=== PATIENT | male | born 1995 | race Caucasian/White ===

== ENCOUNTER 2016-11-08 01:06 | Emergency (ER) | payer OTHER ==
[~2016-11-08] VITALS: Ht 180.3 cm; Wt 92.5 kg
[2016-11-08 01:14] VITALS: TEMP 36.9; Ht 180.3 cm; Wt 92.5 kg
[2016-11-08] MEDS ORDERED: CEFTRIAXONE SOD 350MG/ML 1 GM VIAL IM STA (01:36)
[2016-11-08] MEDS ORDERED: AZITHROMYCIN 250 MG TAB PO STA (01:36)
--- NOTE | 2016-11-08 02:35 | EMERGENCY ROOM VISIT NOTE ---
History First contact with patient: 01:23 Chief Complaint: STD MALE Stated Complaint: POSSIBLE STD Nursing Triage Summary: Patient reports his girlfriend is showing symptoms. States "it whitney when she pees. I just wanted to get checked out. She has an appt friday." Denies symptoms himself. History of Present Illness The patient is a 21 year old male who presents to the Emergency Room with complaints of possible STI. Patient is requesting testing and treatment. He is concerned his girlfriend has 1. He's had gonorrhea in the past. Patient states his girlfriend cheated on him. Patient denies any current symptoms. Patient denies penile pain, testicular pain, penile discharge, dysuria, hematuria, fever, chills, abdominal pain, back pain, sore throat, rectal pain. No other concerns per patient. Review of Systems See HPI for pertinent positives & negatives. A total of 6 systems reviewed and were otherwise negative. Past Medical/Surgical History none Social History Smoking Status: Never Smoker Smokeless Tobacco Use: No Alcohol Use: none Drug Use: none Marital Status: in relationship Housing Status: lives with family Occupation Status: [employer] student Current/Historical Medications No Active Prescriptions or Reported Meds Allergies Coded Allergies: No Known Allergies (Unverified , 05/10/16) Physical Exam Vital Signs Date Time Temp Pulse Resp B/P Pulse Ox O2 Delivery O2 Flow Rate FiO2 11/08/16 01:14 36.9 73 18 144/86 97 Room Air Physical Exam VITALS: Vitals are noted on the nurse's note and reviewed by myself. Vital signs stable. GENERAL: Anxious-appearing male, in no acute distress, nondiaphoretic, well- developed well-nourished. SKIN: Capillary reflex less than 2 seconds. HEENT: Normocephalic. PERRLA. EOMI. Nares patent. Mucous membranes moist. Neck is supple without nuchal rigidity. HEART: Regular rate and rhythm without murmurs gallops or rubs. LUNGS: Clear to auscultation bilaterally without wheezes, rales or rhonchi. No retractions or accessory muscle use. ABDOMEN: Positive bowel sounds x 4. Normal tympanic percussion. Soft, nontender, without masses or organomegaly. Hayden sign negative. No guarding or rebound tenderness. exam: Normal external male genitalia uncircumcised without lesions. Culture taken and sent. Infection Prevention Practitioner present MUSCULOSKELETAL: No gross musculoskeletal defects. NEURO: Patient was alert and oriented to person place and time. No focal neurological deficits. Medical Decision & Procedures Laboratory Results Test 11/08/16 01:30 Medications Administered Medications (Trade) Dose Ordered Sig/Evelina Route Start Time Stop Time Status Last Admin Dose Admin Ceftriaxone Sodium (Rocephin Im) 250 mg NOW STAT IM 11/08/16 01:36 11/08/16 01:37 DC 11/08/16 02:17 250 MG Azithromycin (Zithromax Tab) 1,000 mg NOW STAT PO 11/08/16 01:36 11/08/16 01:37 DC 11/08/16 02:18 1,000 MG ED Course Prior records reviewed and summarized as above. Triage Nursing notes reviewed. The patient's history was concerning for possible STI. Differential diagnosis: Etiologies such as STI, UTI, anxiety, as well as others were entertained.. Physical examination: The physical examination was consistent with possible STI ER treatment provided: Rocephin and Zithromax On reassessment the patient felt better. Diagnostics interpreted by me: The labs revealed GC chlamydia pending This appears to be request prophylaxis for STI. Patient was offered treatment now or to wait for culture results. He is requesting treatment now. He was advised to abstain from intercourse until culture results are reviewed and his girlfriend results are reviewed also. He was advised to return to the immediate for penile pain, drainage, fevers, worsening signs or symptoms or as needed. The pt informed about the findings as listed above. All questions were answered and pleased with the treatment. Return instructions were outlined and the patient was discharged in stable condition. Referral: The patient was referred back to primary care physician for follow-up in 2 to 3 days for a recheck of the current condition. Medical Decision as above Impression Primary Impression: Screen for STD (sexually transmitted disease) Additional Impression: Possible exposure to STD Departure Information Dispostion Home / Self-Care Condition GOOD Prescriptions No Active Prescriptions or Reported Meds Forms WORK / SCHOOL INSTRUCTIONS, HOME CARE DOCUMENTATION FORM, IMPORTANT VISIT INFORMATION Patient Instructions STD Poss, [facility] Additional Instructions Recommend no intercourse until your review your culture results. Rest. Continue current medications. Follow-up health services in 3-4 days for culture results or call the ER. Return to ER sooner for fevers, pain, worsening signs or symptoms or as needed. Problem Qualifiers
[2016-11-08 02:46] VITALS: BP 129/79; PULSE 87; O2SAT 98
[2016-11-12 02:27] LABS: CHLAMYDIA TRACH RNA*** NOT DETECTED (NOT DETECTED); GC (NEIS GONORRHOEAE)RNA** NOT DETECTED (NOT DETECTED)
== END 2016-11-08 02:49 | disposition home or self-care (01) ==
LOC: C.EDB 01:08
DX: Z11.3 Encounter for screening for infections with a predominantly sexual mode of transmission (principal)

== ENCOUNTER 2017-12-27 17:09 | Emergency (ER) | payer OTHER ==
[~2017-12-27] VITALS: Ht 180.3 cm; Wt 93.0 kg
[2017-12-27 17:16] VITALS: Ht 180.3 cm; Wt 93.0 kg
[2017-12-27] MEDS ORDERED: SODIUM CHLORIDE 0.9% 1000ML 1,000 ML IV STA (17:37)
[2017-12-27 18:02] LABS: BASO % 0.2 %; BASO ABS # 0.03 K/uL (0-0.2); EOS % 2.2 %; EOS ABS # 0.28 K/uL (0-0.5); HEMATOCRIT 42.1 % (42-52); HEMOGLOBIN 14.9 g/dL (14.0-18.0); IG# 0.02 K/uL (0.00-0.02); LYMPH % 25.3 %; LYMPH ABS # 3.25 K/uL (1.2-3.4); MEAN CORPUSCULAR HEMOGLOBIN 28.7 pg (25-34); MEAN CORPUSCULAR HGB CONC 35.4 g/dl (32-36); MEAN PLATELET VOLUME 9.2 fL (7.4-10.4); MONO % 7.2 %; MONO ABS # 0.93 K/uL (0.11-0.59); NEUT % 64.9 %; NEUT ABS # 8.33 K/uL (1.4-6.5); PLATELET COUNT 329 K/uL (130-400); RED CELL DISTRIBUTION WIDTH CV 12.9 % (11.5-14.5); RED CELL DISTRIBUTION WIDTH SD 38.4 fL (36.4-46.3); WHITE BLOOD COUNT 12.84 K/uL (4.8-10.8)
[2017-12-27 18:18] LABS: PTT PATIENT 25.5 SECONDS (21.0-31.0)
[2017-12-27 18:21] LABS: CALCIUM 8.9 mg/dl (8.5-10.1); POTASSIUM 3.6 mmol/L (3.5-5.1)
[2017-12-27 18:23] LABS: TOTAL PROTEIN 8.8 gm/dl (6.4-8.2)
--- NOTE | 2017-12-27 19:25 | EMERGENCY ROOM VISIT NOTE ---
History First contact with patient: 17:23 Chief Complaint: RECTAL PAIN Stated Complaint: ANAL AREA PAIN Nursing Triage Summary: c/o rectal pain and had diarrhea for a couple weeks and started getting better and now feels like there is a bump there pt thinks it is hemmroids History of Present Illness The patient is a 22 year old male who presents to the Emergency Room via private vehicle with complaints of "anal area pain". The patient states that he has been experiencing intermittent diarrhea/constipation for about 3 weeks now. He states that this the diarrhea/constipation is beginning to improve however he noticed a bump at the anal region for about the past 1.5 weeks. He states it is very painful to sneeze, cough or have a bowel movement. He states that when he defecates the pain is extreme. He rates that pain as a 7/10. He notes he had chills last night but no fever. No history of Crohn's disease. Review of Systems A complete 10-point Review of Systems was discussed with the patient, with pertinent positives and negatives listed in the History of Present Illness. All remaining Review of Systems questions can be considered negative unless otherwise specified. Past Medical/Surgical History No pertinent. Social History Smoking Status: Never Smoker Alcohol Use: none Drug Use: none Marital Status: in relationship Housing Status: lives with family Occupation Status: [employer] student Current/Historical Medications No Active Prescriptions or Reported Meds Physical Exam Vital Signs Date Time Temp Pulse Resp B/P (MAP) Pulse Ox O2 Delivery O2 Flow Rate FiO2 12/27/17 20:55 74 18 124/72 99 Room Air 12/27/17 19:10 81 18 141/93 99 Room Air 12/27/17 17:16 37.2 81 16 150/109 99 Physical Exam VITAL SIGNS - Vital signs and nursing notes were reviewed. Stable. Hypertensive. GENERAL -22-year-old male appearing his stated age who is in no acute distress. Communicates well with provider and answers questions appropriately. SKIN - Without rashes. No meningeal or petechial rash. HEAD - NC/AT. EYES -Sclera anicteric. EARS - No deformities of external structures noted on gross examination bilaterally. NOSE - Midline and without cyanosis. No epistaxis or purulent drainage noted. MOUTH/OROPHARYNX - Without perioral cyanosis. ABDOMEN - Abdominal contour normal without pulsations or visible masses. BS normoactive all four quadrants. No tenderness, palpable masses, hepatosplenomegaly, or ascites noted. RECTAL: No abnormality identified to inspection externally. No hemorrhoids. Consent was obtained and the rectal exam was performed. With the patient in the prone position, at the 9 o'clock position there is tenderness and induration noted suspicious for that of a potential perirectal cellulitis/ abscess. Medical Decision & Procedures ER Provider Diagnostic Interpretation: ABD/PELVIS IV AND ORAL CONT CLINICAL HISTORY: 22 years-old Male presenting with R rectal pain, suspected abscess. recent diarrhea/bleeding. TECHNIQUE: Multidetector CT of the abdomen and pelvis was performed after the administration of intravenous contrast. IV contrast: Optiray 320. A dose lowering technique was used consistent with the principles of ALARA (as low as reasonably achievable). COMPARISON: None. CT DOSE (mGy.cm): The estimated cumulative dose is 523.76 mGy.cm. FINDINGS: Cops topogram: Unremarkable. Lung bases: Minimal basilar opacities, likely atelectasis. Normal heart size. No pericardial or pleural effusion. Liver: Normal morphology. No liver lesion. Patent hepatic vasculature. Biliary: No intrahepatic or extrahepatic biliary ductal dilatation. Normal gallbladder. Pancreas: Normal. Spleen: Normal. Adrenal glands: Normal. Kidneys and ureters: Normal. No hydronephrosis. Bladder: Incompletely evaluated secondary to underdistention. Pelvic organs: Prostate and seminal vesicles normal. Bowel: 1.2 cm fluid collection along the left lateral aspect of the anus (series 3 image 486). This is within 1 cm of the anal verge. Mild wall thickening of the lower rectum with minimal perirectal fat infiltration. The appendix is normal. No bowel obstruction. Peritoneal cavity: No free fluid or intraperitoneal gas. Lymph nodes: Several enlarged lymph nodes in the presacral region, the largest measuring 11 mm in the short axis (series 3 image 362). Vasculature: Aorta and IVC patent and normal in caliber. Abdominal wall: Right varicocele. Musculoskeletal: Normal. IMPRESSION: 1. 1.2 cm fluid collection along the left lateral aspect of the anus consistent with abscess. This is within 1 cm of the anal verge. Mild inflammatory changes of the lower rectum suggest mild proctitis. 2. Prominent lymph nodes in the presacral region, likely reactive. 3. Right varicocele. Electronically signed by: Murtaza Vigil M.D. 12/27/2017 8:45 PM Dictated Date/Time: 12/27/2017 8:39 PM Laboratory Results 12/27/17 17:54 Red Blood Count 5.20, Mean Corpuscular Volume 81.0, Mean Corpuscular Hemoglobin 28.7, Mean Corpuscular Hemoglobin Concent 35.4, Mean Platelet Volume 9.2, Neutrophils (%) (Auto) 64.9, Lymphocytes (%) (Auto) 25.3, Monocytes (%) (Auto) 7.2, Eosinophils (%) (Auto) 2.2, Basophils (%) (Auto) 0.2, Neutrophils # (Auto) 8.33, Lymphocytes # (Auto) 3.25, Monocytes # (Auto) 0.93, Eosinophils # (Auto) 0.28, Basophils # (Auto) 0.03 12/27/17 17:54 Test 12/27/17 17:54 White Blood Count 12.84 K/uL (4.8-10.8) Red Blood Count 5.20 M/uL (4.7-6.1) Hemoglobin 14.9 g/dL (14.0-18.0) Hematocrit 42.1 % (42-52) Mean Corpuscular Volume 81.0 fL (80-100) Mean Corpuscular Hemoglobin 28.7 pg (25-34) Mean Corpuscular Hemoglobin Concent 35.4 g/dl (32-36) Platelet Count 329 K/uL (130-400) Mean Platelet Volume 9.2 fL (7.4-10.4) Neutrophils (%) (Auto) 64.9 % Lymphocytes (%) (Auto) 25.3 % Monocytes (%) (Auto) 7.2 % Eosinophils (%) (Auto) 2.2 % Basophils (%) (Auto) 0.2 % Neutrophils # (Auto) 8.33 K/uL (1.4-6.5) Lymphocytes # (Auto) 3.25 K/uL (1.2-3.4) Monocytes # (Auto) 0.93 K/uL (0.11-0.59) Eosinophils # (Auto) 0.28 K/uL (0-0.5) Basophils # (Auto) 0.03 K/uL (0-0.2) RDW Standard Deviation 38.4 fL (36.4-46.3) RDW Coefficient of Variation 12.9 % (11.5-14.5) Immature Granulocyte % (Auto) 0.2 % Immature Granulocyte # (Auto) 0.02 K/uL (0.00-0.02) Prothrombin Time 10.3 SECONDS (9.0-12.0) Prothromb Time International Ratio 1.0 (0.9-1.1) Activated Partial Thromboplast Time 25.5 SECONDS (21.0-31.0) Partial Thromboplastin Ratio 1.0 Anion Gap 6.0 mmol/L (3-11) Est Creatinine Clear Calc Drug Dose 136.1 ml/min Estimated GFR () 124.1 Estimated GFR (Non- 107.1 BUN/Creatinine Ratio 14.4 (10-20) Calcium Level 8.9 mg/dl (8.5-10.1) Total Bilirubin 0.3 mg/dl (0.2-1) Aspartate Amino Transf (AST/SGOT) 29 U/L (15-37) Alanine Aminotransferase (ALT/SGPT) 42 U/L (12-78) Alkaline Phosphatase 102 U/L (45-117) Total Protein 8.8 gm/dl (6.4-8.2) Albumin 4.0 gm/dl (3.4-5.0) Globulin 4.8 gm/dl (2.5-4.0) Albumin/Globulin Ratio 0.8 (0.9-2) Medications Administered Medications (Trade) Dose Ordered Sig/Evelina Route Start Time Stop Time Status Last Admin Dose Admin Sodium Chloride 1,000 ml @ 999 mls/hr Q1H1M STAT IV 12/27/17 17:37 12/27/17 18:37 DC 12/27/17 17:59 999 MLS/HR Ciprofloxacin/ Dextrose (Cipro / D5W) 400 mg NOW STAT IV 12/27/17 20:55 12/27/17 20:56 DC 12/27/17 21:10 400 MG Metronidazole (Flagyl / Nss) 500 mg NOW STAT IV 12/27/17 20:55 12/27/17 20:56 DC 12/27/17 21:11 500 MG Medical Decision Patient was seen and evaluated as above in room D04. Review was performed of nursing notes and vital signs. After obtaining a thorough history and physical examination the above work up was performed. He presents to us today on on exam there is concern for perirectal abscess. Abdominal CT was obtained. This was with the use of intravenous and oral contrast over concern of the patient's additional abdominal complaints. This does reveal a small abscess at the anal region. I believe that general surgery should be consulted secondary to its location. I did speak with Dr. Taveras regarding the case. He is a general surgeon who came to evaluate the patient. I ordered ciprofloxacin and Flagyl intravenously for this patient. He declined pain medication. Minimal leukocytosis. No concerning anemia. No concerning metabolic process. Please refer to for the documentation regarding his stay. Case was discussed with the attending physician. In the evaluation and treatment of this patient the following differential diagnoses were entertained: Perirectal abscess, cellulitis, fissure, hemorrhoid , hernia, among others. Impression Primary Impression: Perirectal abscess Departure Information Prescriptions No Active Prescriptions or Reported Meds Referrals [facility] (PCP) Patient Instructions [facility]
--- NOTE | 2017-12-27 20:47 | DIAGNOSTIC IMAGING REPORT ---
ABD/PELVIS IV AND ORAL CONT CLINICAL HISTORY: 22 years-old Male presenting with R rectal pain, suspected abscess. recent diarrhea/bleeding. TECHNIQUE: Multidetector CT of the abdomen and pelvis was performed after the administration of intravenous contrast. IV contrast: Optiray 320. A dose lowering technique was used consistent with the principles of ALARA (as low as reasonably achievable). COMPARISON: None. CT DOSE (mGy.cm): The estimated cumulative dose is 523.76 mGy.cm. FINDINGS: Answering Service Agent topogram: Unremarkable. Lung bases: Minimal basilar opacities, likely atelectasis. Normal heart size. No pericardial or pleural effusion. Liver: Normal morphology. No liver lesion. Patent hepatic vasculature. Biliary: No intrahepatic or extrahepatic biliary ductal dilatation. Normal gallbladder. Pancreas: Normal. Spleen: Normal. Adrenal glands: Normal. Kidneys and ureters: Normal. No hydronephrosis. Bladder: Incompletely evaluated secondary to underdistention. Pelvic organs: Prostate and seminal vesicles normal. Bowel: 1.2 cm fluid collection along the left lateral aspect of the anus (series 3 image 486). This is within 1 cm of the anal verge. Mild wall thickening of the lower rectum with minimal perirectal fat infiltration. The appendix is normal. No bowel obstruction. Peritoneal cavity: No free fluid or intraperitoneal gas. Lymph nodes: Several enlarged lymph nodes in the presacral region, the largest measuring 11 mm in the short axis (series 3 image 362). Vasculature: Aorta and IVC patent and normal in caliber. Abdominal wall: Right varicocele. Musculoskeletal: Normal. IMPRESSION: 1. 1.2 cm fluid collection along the left lateral aspect of the anus consistent with abscess. This is within 1 cm of the anal verge. Mild inflammatory changes of the lower rectum suggest mild proctitis. 2. Prominent lymph nodes in the presacral region, likely reactive. 3. Right varicocele. Electronically signed by: Murtaza Vigil M.D. 12/27/2017 8:45 PM Dictated Date/Time: 12/27/2017 8:39 PM
[2017-12-27] MEDS ORDERED: METRONIDAZOLE 500MG / 100ML NSS IV STA (20:55)
[2017-12-27] MEDS ORDERED: CIPROFLOXACIN 400MG / 200ML D5W IV STA (20:55)
[2017-12-27] MEDS ORDERED: OPTIRAY 320 IV PRN (21:00)
[2017-12-27 22:50] VITALS: O2SAT 97
--- NOTE | 2017-12-27 23:07 | History and Physical ---
History & Physical Date & Time of Service: Dec 27, 2017 at 23:01 Chief Complaint: Anal Area Pain Primary Care Physician: [facility] History of Present Illness Source: patient This is a 22-year-old male who presented to the emergency room with a complaint of pain in the perianal region. He stated that about 2-3 weeks ago he developed diarrhea and constipation alternating. There was no blood. He then developed pain mostly to the left side of the anal opening. The pain was sharp and stabbing. It was exacerbated by sitting for prolonged periods of time but was mostly exacerbated by having a bowel movement. He has never had anything like this before. He has not had fever or chills. He has nausea when the pain is at its maximum but he has not vomited. He has been able to eat in fact had a full [place] meal prior to coming to the emergency room. He has no family or personal history of Crohn's disease. Past Medical/Surgical History Medical Problems: (1) Possible exposure to STD (2) Screen for STD (sexually transmitted disease) (3) STD (male) PSH: None Social History Smoking Status: Never Smoker Smokeless Tobacco Use: No Alcohol Use: occasionally Drug Use: none Marital Status: in relationship Occupational Status: [employer] student Allergies Coded Allergies: No Known Allergies (Unverified , 05/10/16) Home Medications No Active Prescriptions or Reported Meds Review of Systems Constitutional: No fever, No chills Respiratory: No cough Cardiovascular: No chest pain Abdomen: + problem reported (as per HPI) Genitourinary - Male: No hematuria, No dysuria Integumentary: No rash, No itch Physical Exam Vital Signs Date Time Temp Pulse Resp B/P (MAP) Pulse Ox O2 Delivery O2 Flow Rate FiO2 12/27/17 22:50 91 18 126/88 97 Room Air 12/27/17 20:55 74 18 124/72 99 Room Air 12/27/17 19:10 81 18 141/93 99 Room Air 12/27/17 17:16 37.2 81 16 150/109 99 Buttock: Tenderness and induration towards the left side of the buttock posteriorly within 1-2 cm of the anal verge General Appearance: WD/WN, no apparent distress Head: normocephalic Neck: supple, no adenopathy Respiratory/Chest: chest non-tender, lungs clear Cardiovascular: regular rate, rhythm Abdomen/GI: normal bowel sounds, non tender Back: normal inspection, no CVA tenderness Skin: normal color Diagnostics Laboratory Results Results Past 24 Hours Test 12/27/17 17:54 Range/Units White Blood Count 12.84 4.8-10.8 K/uL Red Blood Count 5.20 4.7-6.1 M/uL Hemoglobin 14.9 14.0-18.0 g/dL Hematocrit 42.1 42-52 % Mean Corpuscular Volume 81.0 80-100 fL Mean Corpuscular Hemoglobin 28.7 25-34 pg Mean Corpuscular Hemoglobin Concent 35.4 32-36 g/dl Platelet Count 329 130-400 K/uL Mean Platelet Volume 9.2 7.4-10.4 fL Neutrophils (%) (Auto) 64.9 % Lymphocytes (%) (Auto) 25.3 % Monocytes (%) (Auto) 7.2 % Eosinophils (%) (Auto) 2.2 % Basophils (%) (Auto) 0.2 % Neutrophils # (Auto) 8.33 1.4-6.5 K/uL Lymphocytes # (Auto) 3.25 1.2-3.4 K/uL Monocytes # (Auto) 0.93 0.11-0.59 K/uL Eosinophils # (Auto) 0.28 0-0.5 K/uL Basophils # (Auto) 0.03 0-0.2 K/uL RDW Standard Deviation 38.4 36.4-46.3 fL RDW Coefficient of Variation 12.9 11.5-14.5 % Immature Granulocyte % (Auto) 0.2 % Immature Granulocyte # (Auto) 0.02 0.00-0.02 K/uL Prothrombin Time 10.3 9.0-12.0 SECONDS Prothromb Time International Ratio 1.0 0.9-1.1 Activated Partial Thromboplast Time 25.5 21.0-31.0 SECONDS Partial Thromboplastin Ratio 1.0 Sodium Level 137 136-145 mmol/L Potassium Level 3.6 3.5-5.1 mmol/L Chloride Level 105 98-107 mmol/L Carbon Dioxide Level 26 21-32 mmol/L Anion Gap 6.0 3-11 mmol/L Blood Urea Nitrogen 14 7-18 mg/dl Creatinine 1.00 0.60-1.40 mg/dl Est Creatinine Clear Calc Drug Dose 136.1 ml/min Estimated GFR () 124.1 Estimated GFR (Non- 107.1 BUN/Creatinine Ratio 14.4 10-20 Random Glucose 104 70-99 mg/dl Calcium Level 8.9 8.5-10.1 mg/dl Total Bilirubin 0.3 0.2-1 mg/dl Aspartate Amino Transf (AST/SGOT) 29 15-37 U/L Alanine Aminotransferase (ALT/SGPT) 42 12-78 U/L Alkaline Phosphatase 102 45-117 U/L Total Protein 8.8 6.4-8.2 gm/dl Albumin 4.0 3.4-5.0 gm/dl Globulin 4.8 2.5-4.0 gm/dl Albumin/Globulin Ratio 0.8 0.9-2 Diagnostic Radiology ABD/PELVIS IV AND ORAL CONT CLINICAL HISTORY: 22 years-old Male presenting with R rectal pain, suspected abscess. recent diarrhea/bleeding. TECHNIQUE: Multidetector CT of the abdomen and pelvis was performed after the administration of intravenous contrast. IV contrast: Optiray 320. A dose lowering technique was used consistent with the principles of ALARA (as low as reasonably achievable). COMPARISON: None. CT DOSE (mGy.cm): The estimated cumulative dose is 523.76 mGy.cm. FINDINGS: Pool Hand topogram: Unremarkable. Lung bases: Minimal basilar opacities, likely atelectasis. Normal heart size. No pericardial or pleural effusion. Liver: Normal morphology. No liver lesion. Patent hepatic vasculature. Biliary: No intrahepatic or extrahepatic biliary ductal dilatation. Normal gallbladder. Pancreas: Normal. Spleen: Normal. Adrenal glands: Normal. Kidneys and ureters: Normal. No hydronephrosis. Bladder: Incompletely evaluated secondary to underdistention. Pelvic organs: Prostate and seminal vesicles normal. Bowel: 1.2 cm fluid collection along the left lateral aspect of the anus (series 3 image 486). This is within 1 cm of the anal verge. Mild wall thickening of the lower rectum with minimal perirectal fat infiltration. The appendix is normal. No bowel obstruction. Peritoneal cavity: No free fluid or intraperitoneal gas. Lymph nodes: Several enlarged lymph nodes in the presacral region, the largest measuring 11 mm in the short axis (series 3 image 362). Vasculature: Aorta and IVC patent and normal in caliber. Abdominal wall: Right varicocele. Musculoskeletal: Normal. IMPRESSION: 1. 1.2 cm fluid collection along the left lateral aspect of the anus consistent with abscess. This is within 1 cm of the anal verge. Mild inflammatory changes of the lower rectum suggest mild proctitis. 2. Prominent lymph nodes in the presacral region, likely reactive. 3. Right varicocele. Impression Assessment and Plan This patient is a small perirectal abscess. It is not accessible without anesthesia as he cannot relax enough to allow me to get to that area. We will going to perform the procedure in the operating room. Explained to him the procedure and the possible complications. Answers questions. He signed a consent form. Resuscitation Status VTE Prophylaxis Will order VTE Prophylaxis: No Reason for no VTE drug order: Treatment not indicated Reason no Mechanical VTE Order: Treatment not indicated
[2017-12-27] MEDS ORDERED: SUCCINYLCHOLINE CHLORIDE 20 MG/ML 10 ML VIAL IV ONE (23:15)
[2017-12-27] MEDS ORDERED: ROCURONIUM BROMIDE 10 MG/ML 5 ML VIAL IV ONE (23:15)
[2017-12-27] MEDS ORDERED: LIDOCAINE HCL 2% 2 ML VIAL (20MG/ML) ONE (23:15)
[2017-12-27] MEDS ORDERED: PROPOFOL IV EMULSION 10 MG/ML 20 ML VIAL IV ONE (23:15)
[2017-12-27] MEDS ORDERED: BUPIVACAINE 0.5 % 5 MG/1 ML MPF 30ML VIAL ONE (23:16)
[2017-12-27] MEDS ORDERED: FENTANYL CITRATE INJ 50 MCG/1 ML 2 ML VIAL ONE (23:16)
[2017-12-27] MEDS ORDERED: LIDOCAINE HCL 1% 20 ML VIAL ONE (23:16)
[2017-12-27] MEDS ORDERED: BUPIVACAINE/EPINEPHRINE 0.5% MPF 1:200,000 30 ML VIAL ONE (23:17)
[2017-12-28] MEDS ORDERED: MoRPHine SULFATE 2 MG/ML CARP ONE (01:24)
[2017-12-28] MEDS ORDERED: ONDANSETRON INJ 2 MG/ML 2 ML VIAL ONE (01:26)
[2017-12-28] MEDS ORDERED: KETOROLAC TROMETHAMINE 30 MG/ML VIAL ONE (01:26)
--- NOTE | 2017-12-28 01:45 | [facility] Post Operative Brief Note ---
Immediate Operative Summary Operative Date Dec 28, 2017. Pre-Operative Diagnosis Perirectal Abscess Post-Operative Diagnosis Same Procedure(s) Performed I&D perirectal abscess Surgeon Jer Taveras MD Needle Process Felt Goods Supervisor Surgeon(s) None Estimated Blood Loss 10 cc Findings Consistent with Post-Op Diagnosis Specimens Fluid for culture Drains None Anesthesia Type General Complication(s) none Disposition Accompanied Pt To Recover: no
[2017-12-28] MEDS ORDERED: SODIUM CHLORIDE 0.9% 1000ML 1,000 ML IV SCH (01:48)
--- NOTE | 2017-12-28 01:48 | Discharge Instructions ---
Discharge Instructions Date of Service Dec 28, 2017. Admission Reason for Admission: Anal Area Pain Discharge Discharge Diagnosis / Problem: Same Discharge Goals Goal(s): Decrease discomfort Activity Recommendations Activity Limitations: per Instructions/Follow-up section Shower/Bathe: tomorrow (Shower only) . Instructions / Follow-Up Instructions / Follow-Up ACTIVITY RECOMMENDATIONS: * No heavy lifting for 1 week. MEDICATIONS: Resume previous medications unless instructed otherwise by your surgeon. * Percocet 5/325 mg 1 every 4 hours, as needed for pain * Colace 100 mg 2 times per day * Ibuprofen 600 mg every 6 hours, as needed for pain SPECIAL CARE INSTRUCTIONS: * Remove dressings and start sitz baths tomorrow A.M. unless you have a bowel movement today, then remove dressings and start sitz baths at that time. * Shower or sitz bath 3 times per day and after each bowel movement. * Remove packing Friday * Call the surgeon's office with any questions or concerns - ( ex. temperature higher than 101 degrees F, excessive bleeding or pain). FOLLOW UP VISIT: If not already scheduled, please call the office to schedule a two week follow- up appointment. Office number . Current Hospital Diet Patient's current hospital diet: Discharge Diet Recommended Diet: Regular Diet Procedures Procedures Performed: I&D perirectal abscess Pending Studies Studies pending at discharge: yes List of pending studies: Culture results Medical Emergencies . Who to Call and When: Medical Emergencies: If at any time you feel your situation is an emergency, please call 911 immediately. . Non-Emergent Contact Non-Emergency issues call your: Primary Care Provider, Surgeon Call Non-Emergent contact if: your pain is worsening, wound has increased redness, wound has increased pain . "Provider Documentation" section prepared by Jer Taveras. .
[2017-12-28] MEDS ORDERED: METR500T PO (01:52)
[2017-12-28] MEDS ORDERED: CIPR-255 PO (01:52)
[2017-12-28] MEDS ORDERED: FENTANYL CITRATE INJ 50 MCG/1 ML 2 ML VIAL IV PRN (02:00)
[2017-12-28] MEDS ORDERED: MoRPHine SULFATE 4 MG/ML 1 ML CARP\\VIAL IV PRN (02:00)
[2017-12-28] MEDS ORDERED: OXYCODONE/ACETAMINOPHEN 5-325 TAB PO PRN (02:00)
[2017-12-28] MEDS ORDERED: EpHEDrine SULFATE INJ 50 MG/ML AMP IV PRN (02:00)
[2017-12-28] MEDS ORDERED: ONDANSETRON INJ 2 MG/ML 2 ML VIAL IV PRN ×2 (02:00)
[2017-12-28] MEDS ORDERED: PROMETHAZINE HCL INJ 6.25 MG in SODIUM CHLORIDE 0.9% 50ML 50 ML IV PRN (02:00)
[2017-12-28] MEDS ORDERED: ATROPINE SULFATE 0.1 MG/ML 5ML SYR IV PRN (02:00)
--- NOTE | 2017-12-28 02:14 | Anesthesiology Progress Note ---
Anesthesia Post Op Note Date & Time Dec 28, 2017 at 02:14 Vital Signs Pain Intensity: 0 Vital Signs Past 12 Hours Date Time Temp Pulse Resp B/P (MAP) Pulse Ox O2 Delivery O2 Flow Rate FiO2 12/28/17 02:05 93 20 140/83 95 Nasal Cannula 4 12/28/17 01:55 84 20 148/87 98 Nasal Cannula 4 12/28/17 01:46 37.9 104 20 155/74 94 Nasal Cannula 4 12/27/17 22:50 91 18 126/88 97 Room Air 12/27/17 20:55 74 18 124/72 99 Room Air 12/27/17 19:10 81 18 141/93 99 Room Air 12/27/17 17:16 37.2 81 16 150/109 99 Notes Mental Status: alert / awake / arousable, participated in evaluation Pt Amnestic to Procedure: Yes Nausea / Vomiting: adequately controlled Pain: adequately controlled Airway Patency, RR, SpO2: stable & adequate BP & HR: stable & adequate Hydration State: stable & adequate Anesthetic Complications: no major complications apparent
[2017-12-28 02:33] VITALS: BP 154/61; PULSE 92; TEMP 37.4; O2SAT 96
[2017-12-28] MEDS ORDERED: OXYCODONE/ACETAMINOPHEN 5-325 TAB ONE (02:53)
[2017-12-28 03:00] VITALS: BP 151/80; PULSE 90; TEMP 37.3; O2SAT 95
--- NOTE | 2017-12-30 15:08 | Pharmacy Progress Note ---
ED Pharmacist Culture FollowUp Date of Service: Dec 30, 2017. Patient seen in ER on 12/27 for perirectal abscess, for which he was taken to the OR for I&D. He was discharged on Cipro + Flagyl PO x 7 days. Today the abscess cx is growing neisseria gonorrhoeae. Reviewed case with Shiva Chan PAC. Plan is to have the patient return for treatment of STI (Rocephin IM + either Azithromycin PO or Doxy PO). I attempted to contact the patient w/ phone # provided: [phone], however there was no answer. I did leave a message requesting he call us back.
== END 2017-12-27 23:25 | disposition still patient (30) ==
LOC: C.EDB 17:11 → C.EDD 23:25
DX: K61.1 Rectal abscess (principal); I86.1 Scrotal varices

== ENCOUNTER 2017-12-30 18:21 | Emergency (ER) | payer SELFPAY ==
[~2017-12-30] VITALS: Ht 180.3 cm; Wt 93.5 kg
[~2017-12-30 18:21] MED LIST: CIPR-255 PO; METR500T PO
[2017-12-30 18:25] VITALS: TEMP 37.8; Ht 180.3 cm; Wt 93.5 kg
[2017-12-30] MEDS ORDERED: AZITHROMYCIN 250 MG TAB PO STA (19:48)
[2017-12-30] MEDS ORDERED: CEFTRIAXONE SOD INJ 1 GM ADDVIAL IV STA (19:48)
[2017-12-30 19:53] LABS: BASO % 0.3 %; BASO ABS # 0.03 K/uL (0-0.2); EOS % 5.7 %; EOS ABS # 0.52 K/uL (0-0.5); HEMATOCRIT 42.5 % (42-52); HEMOGLOBIN 14.6 g/dL (14.0-18.0); IG# 0.03 K/uL (0.00-0.02); LYMPH % 44.7 %; LYMPH ABS # 4.06 K/uL (1.2-3.4); MEAN CELL VOLUME 81.7 fL (80-100); MEAN CORPUSCULAR HEMOGLOBIN 28.1 pg (25-34); MEAN CORPUSCULAR HGB CONC 34.4 g/dl (32-36); MEAN PLATELET VOLUME 9.3 fL (7.4-10.4); MONO % 6.4 %; MONO ABS # 0.58 K/uL (0.11-0.59); NEUT % 42.6 %; NEUT ABS # 3.87 K/uL (1.4-6.5); PLATELET COUNT 395 K/uL (130-400); RED CELL DISTRIBUTION WIDTH SD 39.2 fL (36.4-46.3); WHITE BLOOD COUNT 9.09 K/uL (4.8-10.8)
[2017-12-30 20:15] LABS: ALBUMIN 3.9 gm/dl (3.4-5.0); CALCIUM 8.8 mg/dl (8.5-10.1); CREATININE 0.98 mg/dl (0.60-1.40); POTASSIUM 3.8 mmol/L (3.5-5.1); TOTAL PROTEIN 8.8 gm/dl (6.4-8.2)
--- NOTE | 2017-12-30 20:32 | EMERGENCY ROOM VISIT NOTE ---
History First contact with patient: 18:35 Chief Complaint: OTHER COMPLAINT Stated Complaint: ANTIBIOTICS History of Present Illness The patient is a 22 year old male who presents to the Emergency Room with complaints of "wound recheck". The patient states that he was seen here in the emergency a few days ago and had an abscess in the perirectal region drained and the culture grew out results of which would require further antibiotics therefore he was notified by the hospital and recommended to return therefore prompting his visit here to the emergency department today. He was seen her December 27. He states that he has been taking the Cipro and Flagyl as prescribed. He states that he now has bowel movements with minimal pain. He does state that his last sexual partner which he had anal intercourse with was 1 month ago. He notes that he was tested for HIV in early November of which was negative. He denies any fevers or chills and notes that he is feeling much better. Review of Systems A complete 6-point Review of Systems was discussed with the patient, with pertinent positives and negatives listed in the History of Present Illness. All remaining Review of Systems questions can be considered negative unless otherwise specified. Past Medical/Surgical History Perirectal abscess. Family History No pertinent. Social History Smoking Status: Never Smoker Alcohol Use: none Drug Use: none Marital Status: in relationship Housing Status: lives with family Occupation Status: [employer] student Current/Historical Medications Scheduled Ciprofloxacin Hcl (Cipro), 500 MG PO BID Metronidazole (Flagyl), 500 MG PO TID Physical Exam Vital Signs Date Time Temp Pulse Resp B/P (MAP) Pulse Ox O2 Delivery O2 Flow Rate FiO2 12/30/17 21:13 75 18 140/84 96 12/30/17 19:57 72 18 136/83 99 Room Air 12/30/17 18:25 37.8 73 17 137/81 97 Room Air Physical Exam VITAL SIGNS - Vital signs and nursing notes were reviewed. Stable. He is febrile. He notes that he does not feel febrile. He has been taking ibuprofen for pain. GENERAL -22-year-old male appearing his stated age who is in no acute distress. Communicates well with provider and answers questions appropriately. SKIN - Without rashes. No meningeal or petechial rash. HEAD - NC/AT. EYES - PERRL with EOMI bilaterally. Sclera anicteric. EARS - No deformities of external structures noted on gross examination bilaterally. NOSE - Midline and without cyanosis. MOUTH/OROPHARYNX - Without perioral cyanosis. RECTAL: After consent was obtained, rectal examination was performed. There is interval decrease in edema in the perirectal region, and very minimal tenderness. No drainage. Medical Decision & Procedures Laboratory Results 12/30/17 19:00 Red Blood Count 5.20, Mean Corpuscular Volume 81.7, Mean Corpuscular Hemoglobin 28.1, Mean Corpuscular Hemoglobin Concent 34.4, Mean Platelet Volume 9.3, Neutrophils (%) (Auto) 42.6, Lymphocytes (%) (Auto) 44.7, Monocytes (%) (Auto) 6.4, Eosinophils (%) (Auto) 5.7, Basophils (%) (Auto) 0.3, Neutrophils # (Auto) 3.87, Lymphocytes # (Auto) 4.06, Monocytes # (Auto) 0.58, Eosinophils # (Auto) 0.52, Basophils # (Auto) 0.03 12/30/17 19:00 Test 12/30/17 19:00 White Blood Count 9.09 K/uL (4.8-10.8) Red Blood Count 5.20 M/uL (4.7-6.1) Hemoglobin 14.6 g/dL (14.0-18.0) Hematocrit 42.5 % (42-52) Mean Corpuscular Volume 81.7 fL (80-100) Mean Corpuscular Hemoglobin 28.1 pg (25-34) Mean Corpuscular Hemoglobin Concent 34.4 g/dl (32-36) Platelet Count 395 K/uL (130-400) Mean Platelet Volume 9.3 fL (7.4-10.4) Neutrophils (%) (Auto) 42.6 % Lymphocytes (%) (Auto) 44.7 % Monocytes (%) (Auto) 6.4 % Eosinophils (%) (Auto) 5.7 % Basophils (%) (Auto) 0.3 % Neutrophils # (Auto) 3.87 K/uL (1.4-6.5) Lymphocytes # (Auto) 4.06 K/uL (1.2-3.4) Monocytes # (Auto) 0.58 K/uL (0.11-0.59) Eosinophils # (Auto) 0.52 K/uL (0-0.5) Basophils # (Auto) 0.03 K/uL (0-0.2) RDW Standard Deviation 39.2 fL (36.4-46.3) RDW Coefficient of Variation 13.0 % (11.5-14.5) Immature Granulocyte % (Auto) 0.3 % Immature Granulocyte # (Auto) 0.03 K/uL (0.00-0.02) Anion Gap 4.0 mmol/L (3-11) Est Creatinine Clear Calc Drug Dose 139.2 ml/min Estimated GFR () 127.2 Estimated GFR (Non- 109.8 BUN/Creatinine Ratio 15.7 (10-20) Lactic Acid Level 1.5 mmol/L (0.4-2.0) Calcium Level 8.8 mg/dl (8.5-10.1) Total Bilirubin 0.2 mg/dl (0.2-1) Aspartate Amino Transf (AST/SGOT) 49 U/L (15-37) Alanine Aminotransferase (ALT/SGPT) 60 U/L (12-78) Alkaline Phosphatase 91 U/L (45-117) Total Protein 8.8 gm/dl (6.4-8.2) Albumin 3.9 gm/dl (3.4-5.0) Globulin 4.9 gm/dl (2.5-4.0) Albumin/Globulin Ratio 0.8 (0.9-2) Chemistry Specimen Hemolysis Medications Administered Medications (Trade) Dose Ordered Sig/Evelina Route Start Time Stop Time Status Last Admin Dose Admin Ceftriaxone Sodium (Rocephin Inj) 1 gm NOW STAT IV 12/30/17 19:48 12/30/17 19:50 DC 12/30/17 19:59 1 GM Azithromycin (Zithromax Tab) 1,000 mg NOW STAT PO 12/30/17 19:48 12/30/17 19:50 DC 12/30/17 19:58 1,000 MG Medical Decision Patient was seen and evaluated as above. He presents to us today after being called by the hospital with the perirectal abscess culture results. This grew out gonorrhea. He does note recent anal intercourse. Review was performed of nursing notes and vital signs. After obtaining a thorough history and physical examination the above work up was performed. He is febrile. He does not appear toxic at all. He notes that he does not even think he has a fever. He was given intravenous Rocephin. He was given azithromycin. This is to cover for any potential gonorrhea or chlamydial infection that is untreated. He is to continue the Cipro and Flagyl given that the location of the abscess would warrant coverage by these antibiotics. There is no concerning leukocytosis or anemia. Slight elevation of liver enzyme. He was informed to follow-up with [facility] as well as local services in [facility] that offer confidential HIV testing. This is secondary to his risk. I do not suspect that this needs to be emergently performed. He is also referred to Dr. Otero, of infectious disease for further evaluation and management. He is to call Dr. Otero's office with contact information provided. This was after discussing the case with the attending physician. The patient was educated upon management, had questions answered prior to discharge, and was discharged home in good condition. Because of the recent perirectal abscess, and him being febrile upon presentation I did elect to draw blood cultures of which I suspect will be negative however cultures are pending. Patient was thoroughly educated upon worrisome symptoms in which to return. Is also informed to alert sexual partners of which may also be co-infected. In the evaluation and treatment of this patient the following differential diagnoses were entertained: Need for further antibiotics secondary to culture results, worsening perirectal abscess, sepsis, among others. Impression Primary Impression: gonorrhea postive culture from perianal abscess Departure Information Dispostion Home / Self-Care Condition GOOD Referrals No Doctor, Assigned (PCP) Bello Otero MD Patient Instructions My [facility] Additional Instructions You were seen in the emergency department for further antibiotics for the gonorrhea abscess. Please call Dr. Otero, infectious disease doctor to schedule follow-up. Please call [facility] to schedule follow-up for the varicocele , as well as potential testing for HIV and hepatitis. You have also been given number to contact for testing in town. Please watch your temperature, if you develop any illness please return immediately. Thank you for your time.
[2017-12-30 21:13] VITALS: BP 140/84; PULSE 75; O2SAT 96
== END 2017-12-30 21:14 | disposition home or self-care (01) ==
LOC: C.EDB 18:23 → C.EDD 21:14
DX: A54.89 Other gonococcal infections (principal); R74.8 Abnormal levels of other serum enzymes; Z98.890 Other specified postprocedural states